=== PATIENT | female | born 1950 | race Caucasian/White ===

== ENCOUNTER → 2019-06-04 09:36 | Outpatient (CLI) | payer MEDICARE, OTHER, SELFPAY | PROVIDERS: PCP Family Medicine; Visit Provider Family Medicine | DX: M81.0 Age-related osteoporosis without current pathological fracture (principal); Z78.0 Asymptomatic menopausal state | CPT/HCPCS: 77080 ==

== ENCOUNTER → 2020-09-14 12:20 | Outpatient (CLI) | payer MEDICARE, OTHER, SELFPAY ==
--- NOTE | 2020-09-14 12:27 | DI.RAD.S_ITS ---
PROCEDURE: XR CHEST 2V INDICATIONS: pain in thoracic spine TECHNIQUE: 2 views of the chest were acquired. COMPARISON: None. FINDINGS: Surgical changes and devices: None. Lungs and pleura: Lungs are clear. No pleural effusions or pneumothorax. Mediastinum: Mediastinal contours are normal. Heart size is normal. Bones and chest wall: Age-indeterminate anterior wedging of lower thoracic or upper lumbar vertebral body. IMPRESSION: No acute cardiopulmonary disease Age-indeterminate lower thoracic or upper lumbar mild compression fracture. Please correlate clinically to determine acuity Dictated by: Robinson Valencia M.D. on 09/14/2020 at 14:08 Approved by: Robinson Valencia M.D. on 09/14/2020 at 14:10
== END ==
PROVIDERS: PCP Family Medicine; Referring Provider Nurse Practitioner Family; Visit Provider Nurse Practitioner Family
DX: M54.6 Pain in thoracic spine (principal)
CPT/HCPCS: 71046

== ENCOUNTER → 2020-10-28 12:16 | Outpatient (CLI) | payer MEDICARE, OTHER, SELFPAY ==
--- NOTE | 2020-10-28 12:29 | DI.RAD.S_ITS ---
PROCEDURE: XR THORACIC SPINE 3V INDICATIONS: muscle spasms TECHNIQUE: 3 views of the thoracic spine were acquired. COMPARISON: [facility], , XR CHEST 2V, 09/14/2020, 12:31. FINDINGS: Bones: Loss of height noted in the anterior column of the T12 vertebral body compatible with compression fracture. T12 compression fracture results in approximately 40% loss of normal anterior vertebral body height. No kyphosis or retropulsed fragments associated the T12 compression fracture. No suspicious bony lesions. Twelve pairs of ribs are noted, and appear intact where visualized. Mild degenerative disc disease noted throughout the thoracic spine. Soft tissues: No paravertebral stripe thickening. Cholecystectomy clips. IMPRESSION: 1. T12 compression fracture which is not significantly changed compared to chest radiographs and September 14, 2020. Dictated by: Telma Marroquin MD, PhD on 10/28/2020 at 16:43 Approved by: Telma Marroquin MD, PhD on 10/28/2020 at 16:48
== END ==
PROVIDERS: PCP Family Medicine; Referring Provider Nurse Practitioner Family; Visit Provider Nurse Practitioner Family
DX: M48.54XA Collapsed vertebra, not elsewhere classified, thoracic region, initial encounter for fracture (principal)
CPT/HCPCS: 72072

== ENCOUNTER → 2020-11-23 11:43 | Outpatient (CLI) | payer MEDICARE, OTHER, SELFPAY ==
--- NOTE | 2020-11-23 | DI.MRI.S_ITS ---
PROCEDURE: MR THORACIC SPINE WO CON INDICATIONS: COMPRESSION FRACTURE TECHNIQUE: Noncontrast sagittal T1 spine echo and T2 fast spin echo, sagittal STIR, axial T1 and T2 fast spin echo through the thoracic spine. COMPARISON: [facility], RF, BARIUM SWALLOW, 08/07/2016, 9:26. [facility], CR, XR CHEST 2V, 09/14/2020, 12:31. [facility], CR, XR THORACIC SPINE 3V, 10/28/2020, 12:30. FINDINGS: Image quality: Excellent. Alignment and Curvature: There is normal bony alignment except for scant kyphosis at T12 associated with the 20% anterior vertebral body height reduction when compared to the level immediately above. This compression fracture initially identified plain film imaging 09/14/20 new, and has not appreciably changed from that time. Bone Marrow: Marrow is of normal overall signal. No acute vertebral body compression fractures. Spinal Cord: Visualized spinal cord is normal in size and signal. Paraspinous Soft Tissues: No paravertebral masses. Miscellaneous: On axial images, central canal and foramina appear widely patent at all scanned levels. IMPRESSION: Chronic wedge compression fracture with 20% anterior height reduction at T12 as a result. No new compression fracture is seen. No suspicion for presence of osteolytic or blastic lesion as the underlying cause. Dictated by: Gio Turner M.D. on 11/23/2020 at 14:42 Approved by: Gio Turner M.D. on 11/23/2020 at 14:47
== END ==
PROVIDERS: PCP Family Medicine; Referring Provider Physical Medicine & Rehabilitation; Visit Provider Physical Medicine & Rehabilitation
DX: S22.080A Wedge compression fracture of T11-T12 vertebra, initial encounter for closed fracture (principal)
CPT/HCPCS: 72146

== ENCOUNTER → 2022-12-01 15:41 | Outpatient (CLI) | payer MEDICARE, OTHER, SELFPAY ==
--- NOTE | 2022-12-01 15:46 | DI.MG.S_ITS ---
BILATERAL DIGITAL SCREENING MAMMOGRAM 3D/2D WITH CAD: 12/01/2022 CLINICAL: Routine screening. Comparison is made to exams dated: 06/29/2017 mammogram - [facility], 11/21/2011 mammogram, 11/27/2008 mammogram, and 04/11/2006 mammogram - [facility]. There are scattered areas of fibroglandular density in both breasts (category b / 25%-50% glandular tissue). Current study was also evaluated with a Computer Aided Detection (CAD) system. No significant masses, calcifications, or other findings are seen in either breast. There has been no significant interval change. IMPRESSION: NEGATIVE There is no mammographic evidence of malignancy. A 1 year screening mammogram is recommended. Based on the Tyrer Cuzick model (a risk assessment model) the patient's lifetime risk is 4.4% and her 10 year risk is 3.6%. According to the ACR, ACS, and NCCN guidelines, an annual breast MRI exam along with mammogram is recommended if the patient's lifetime risk is 20% or greater. This exam was interpreted at Station ID: [id number]. NOTE: For mammograms, a report in lay terms will be sent to the patient. Approximately 15% of breast malignancies will not be visualized mammographically. In the management of a palpable breast mass, a negative mammogram must not discourage biopsy of a clinically suspicious lesion. Electronically Signed By: Le franco/herrera:12/01/2022 17:48:11 letter sent: Normal Exam ACR BI-RADS Category 1: Negative [id number]
== END ==
PROVIDERS: PCP Family Medicine; Referring Provider Family Medicine; Visit Provider Family Medicine
DX: Z12.31 Encounter for screening mammogram for malignant neoplasm of breast (principal)
CPT/HCPCS: 77063; 77067

== ENCOUNTER → 2023-02-23 12:33 | Outpatient (CLI) | payer MEDICARE, OTHER, SELFPAY ==
--- NOTE | 2023-02-23 | DI.RAD.S_ITS ---
PROCEDURE: XR KNEE RT 3V INDICATIONS: KNEE PAIN TECHNIQUE: 3 views of the knee were acquired. COMPARISON: None. FINDINGS: Bones: No fractures or dislocations. No suspicious bony lesions. Mild degenerative changes with osteophytes medially. Soft tissues: No joint effusion. No suspicious soft tissue calcifications. IMPRESSION: Mild degenerative changes of the right knee. Dictated by: Audi Fry M.D. on 02/23/2023 at 13:38 Approved by: Audi Fry M.D. on 02/23/2023 at 13:40
== END ==
PROVIDERS: PCP Family Medicine; Referring Provider Family Medicine; Visit Provider Family Medicine
DX: M25.561 Pain in right knee (principal)
CPT/HCPCS: 73562

== ENCOUNTER → 2024-04-24 09:33 | Outpatient (CLI) | payer MEDICARE, OTHER, SELFPAY ==
--- NOTE | 2024-04-24 | DI.RAD.S_ITS ---
PROCEDURE: XR HIP W PEL IF DONE BILAT 2V COMPARISON: None. INDICATIONS: bilateral hip pain FINDINGS: No acute fracture or dislocation. Mild to moderate on arthritis in the hips bilaterally with joint space narrowing medially and mild bony sclerosis along a acetabular. No lytic or blastic lesions. 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 Dictated by: William Mata M.D. on 04/24/2024 at 13:16 Approved by: William Mata M.D. on 04/24/2024 at 13:18
== END ==
LOC: LAB 09:34 → RAD 09:35
PROVIDERS: PCP Family Medicine; Referring Provider Family Medicine; Visit Provider Family Medicine
DX: M25.551 Pain in right hip (principal); M25.552 Pain in left hip; M16.0 Bilateral primary osteoarthritis of hip
CPT/HCPCS: 73521

== ENCOUNTER → 2024-05-28 | Outpatient (CLI) | payer MEDICARE, OTHER, SELFPAY ==
--- NOTE | 2024-05-28 08:09 | DI.MRI.S_ITS ---
PROCEDURE: MR LUMBAR SPINE WO CON INDICATIONS: LOW BACK PAIN, TECHNIQUE: Noncontrast sagittal T1 spin echo and T2 fast echo, sagittal STIR, and T2 fast spin echo through the lumbar spine. In cases with scoliosis, additional coronal T2 fast spin echo may be performed. COMPARISON: None. FINDINGS: Image quality: Excellent. Alignment and Curvature: No plain films are available for comparison, for numbering purposes. Thus, for the purposes of this examination, 5 lumbar type vertebral bodies will be presumed, as denoted on the montage panel. This should be confirmed and correlated with plain films, prior to any lumbar spinal intervention. There is loss of normal lumbar lordosis. Mild kyphosis at the T11-T12 disc space level Bone Marrow: Marrow is of normal overall signal. No acute vertebral body compression fractures. There is moderate chronic wedging of L3 and mild chronic wedging of T12. Mild reactive signal throughout the endplates of the lumbar and lower thoracic spine. Spinal Cord: Conus medullaris terminates at the L1-L2 disc space level. Visualized cord demonstrates normal signal and size. Paraspinous Soft Tissues: No paravertebral masses. T12-L1: Mild disc desiccation. No significant canal nor foraminal stenosis. L1-L2: Mild disc desiccation. Mild bilateral facet and ligamentum flavum hypertrophy. No significant canal nor foraminal stenosis. L2-L3: Mild facet and ligamentum flavum hypertrophy. Mild epidural lipomatosis. Mild canal stenosis. Mild bilateral foraminal stenosis. L3-L4: Mild disc desiccation and diffuse disc bulge/osteophyte. Mild bilateral facet hypertrophy. Mild canal stenosis. Severe left and moderate right foraminal stenosis. Left L3 nerve root compression. L4-L5: Mild disc desiccation and diffuse disc bulge. Mild bilateral facet and ligamentum flavum hypertrophy. Mild canal stenosis. Moderate subarticular foraminal stenosis bilaterally. L5-S1: Mild bilateral facet hypertrophy. No significant canal stenosis. Mild bilateral foraminal stenosis. IMPRESSION: 1. Multilevel degenerative disc and facet disease, as well as ligamentum flavum hypertrophy and epidural lipomatosis. 2. Mild multilevel canal stenoses. 3. Multilevel foraminal stenoses, worst at L3-L4 where there is associated intraforaminal nerve root compression. Recommend correlation with clinical symptoms to ascertain relevance of this finding. 4. 5 lumbar type vertebral bodies were presumed for the current report. Plain films of the lumbar spine are recommended for confirmation, prior to any lumbar spinal intervention. Dictated by: Yasmine Rodriguez M.D. on 05/28/2024 at 9:53 Approved by: Yasmine Rodriguez M.D. on 05/28/2024 at 10:19
== END ==
LOC: MRI 08:08
PROVIDERS: PCP Family Medicine; Referring Provider Orthopaedic Surgery Adult Reconstructive Orthopaedic Surgery; Visit Provider Orthopaedic Surgery Adult Reconstructive Orthopaedic Surgery
DX: M51.36 Other intervertebral disc degeneration, lumbar region (principal); M47.816 Spondylosis without myelopathy or radiculopathy, lumbar region; M47.817 Spondylosis without myelopathy or radiculopathy, lumbosacral region; M48.061 Spinal stenosis, lumbar region without neurogenic claudication; M48.07 Spinal stenosis, lumbosacral region; M54.50 Low back pain, unspecified
CPT/HCPCS: 72148

== ENCOUNTER → 2024-08-27 12:43 | Outpatient (CLI) | payer MEDICARE, OTHER, SELFPAY ==
--- NOTE | 2024-08-27 12:46 | DI.RAD.S_ITS ---
PROCEDURE: XR WRIST LT MIN 3V INDICATIONS: WRIST PAIN TECHNIQUE: 4 views of the wrist were acquired. COMPARISON: None. FINDINGS: Bones: There is an age-indeterminate slightly displaced and fracture of the scaphoid waist. Mild STT and 1st CMC degenerative changes. Soft tissues: No suspicious calcifications elsewhere. IMPRESSION: Age-indeterminate scaphoid waist fracture. This can be associated with proximal scaphoid osteonecrosis. Mild 1st CMC and STT degenerative changes. Dictated by: Olayinka Rico M.D. on 08/27/2024 at 15:58 Approved by: Olayinka Rico M.D. on 08/27/2024 at 15:59
--- NOTE | 2024-08-27 12:46 | DI.RAD.S_ITS ---
PROCEDURE: XR FOOT RT MIN 3V INDICATIONS: FOOT PAIN TECHNIQUE: 3 views of the foot were acquired. COMPARISON: None. FINDINGS: Bones: Mild 1st MTP arthrosis. Age-indeterminate bone fragment adjacent to the 1st metatarsal head. Plantar and calcaneal enthesopathy. Mild midfoot degenerative changes. Prominent dorsal talar osteophyte. Soft tissues: No suspicious calcifications IMPRESSION: Midfoot and 1st MTP degenerative changes. Prominent dorsal osteophyte. Plantar and calcaneal enthesopathy. Age-indeterminate bone fragment adjacent to the 1st metatarsal head. If there is high concern for further derangement, consider MRI evaluation. Dictated by: Olayinka Rico M.D. on 08/27/2024 at 15:56 Approved by: Olayinka Rico M.D. on 08/27/2024 at 15:57
== END ==
PROVIDERS: PCP Family Medicine; Referring Provider Family Medicine; Visit Provider Family Medicine
DX: S62.025A Nondisplaced fracture of middle third of navicular [scaphoid] bone of left wrist, initial encounter for closed fracture (principal); M77.31 Calcaneal spur, right foot; Z91.81 History of falling
CPT/HCPCS: 73110; 73630

== ENCOUNTER → 2024-09-01 12:32 | Outpatient (CLI) | payer MEDICARE, OTHER, SELFPAY ==
--- NOTE | 2024-09-01 12:33 | DI.CT.S_ITS ---
PROCEDURE: CT UE LT WO CON INDICATIONS: CLOSED DISPLACED FX OF SCAPHOID OF L WRIST TECHNIQUE: Noncontrast 1 mm axial sections acquired through the carpal bones, with coronal and sagittal reformats. COMPARISON: [facility], CR, XR WRIST LT MIN 3V, 08/27/2024, 12:47. FINDINGS: Image quality: Excellent. Bones: There is a chronic-appearing fracture of the proximal pole and scaphoid waist dorsal articular surfaces (5/70; 4/43) without proximal pole sclerosis or extension to the palmar cortex. Intraosseous ganglion cyst formation is likely present within the volar aspect of the scaphoid waist (4/37). No other fracture or dislocation. Joints: There is widening of the scapholunate interval up to 5 mm. 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 Muscles: Overall muscle bulk is preserved. Tendons: The visualized flexor and extensor tendon contours are within normal limits. Vessels: No aneurysmal dilatation of the radial and ulnar arteries. IMPRESSION: Chronic-appearing incomplete fracture of the scaphoid proximal pole/waist without CT evidence of scapholunate injury but without proximal pole sclerosis or complete extension to the palmar cortex. Dictated by: Nihs Mesa M.D. on 09/03/2024 at 14:31 Approved by: Nish Mesa M.D. on 09/03/2024 at 14:39
== END ==
PROVIDERS: PCP Family Medicine; Referring Provider Physician Assistant Surgical; Visit Provider Physician Assistant Surgical
DX: S62.002A Unspecified fracture of navicular [scaphoid] bone of left wrist, initial encounter for closed fracture (principal); X58.XXXA Exposure to other specified factors, initial encounter
CPT/HCPCS: 73200

== ENCOUNTER → 2024-10-08 10:17 | Outpatient (CLI) | payer MEDICARE, OTHER, SELFPAY ==
--- NOTE | 2024-10-08 10:20 | DI.RAD.S_ITS ---
PROCEDURE: FL BARIUM SWALLOW INDICATIONS: dysphagia COMPARISON: [facility], , BARIUM SWALLOW, 08/07/2016, 9:26. FINDINGS: Function: There is weakened esophageal peristalsis, resulting in esophageal stasis. Small volume gastroesophageal reflux. Morphology: Small hiatal hernia. IMPRESSION: Moderate esophageal dysmotility. Small hiatal hernia and mild reflux. Dictated by: Jason Bermeo M.D. on 10/08/2024 at 12:46 Approved by: Jason Bermeo M.D. on 10/08/2024 at 12:47
== END ==
PROVIDERS: PCP Family Medicine; Visit Provider Radiology Diagnostic Radiology
DX: R13.10 Dysphagia, unspecified (principal); K22.4 Dyskinesia of esophagus; K44.9 Diaphragmatic hernia without obstruction or gangrene
CPT/HCPCS: 74220

== ENCOUNTER → 2025-01-23 08:04 | Outpatient (CLI) | payer MEDICARE, OTHER, SELFPAY ==
--- NOTE | 2025-01-23 | DI.MRI.S_ITS ---
PROCEDURE: MR WRIST LT W CON INDICATIONS: SCAPHOLUNATE ADV COLLAPSE LEFT WRIST TECHNIQUE: After the administration of 3-4 mL of dilute intra-articular Gadolinium contrast into the radiocarpal compartment, coronal T1 spin echo with fat saturation and T2 fast spin echo with fat saturation, axial T1 spin echo and T2 fast spin echo with fat saturation, sagittal T1 spin echo with and without fat saturation through the wrist. COMPARISON: Merged With [facility], CT, CT UE LT WO CON, 09/01/2024, 12:36. [facility] [place], CR, XR WRIST 3+ VIEWS LEFT, 01/19/2025, 13:12. Merged With [facility], RF, FL ARTHROGRAM WRIST LT, 01/23/2025, 7:29. FINDINGS: Image quality: Extra-articular injection of administered contrast material dorsal to the wrist. No significant intra-articular contrast material is seen. Some diagnostic information is obtained. Bones and cartilage: Edema and cystic changes again seen within the scaphoid. Previously seen chronic fracture fragment along the proximal pole of the scaphoid is not as well seen with MRI, but does not appear significantly changed. Mild degenerative changes at the 1st carpometacarpal and triscaphe joint. Moderate degenerative changes in the radiocarpal joint with subchondral cystic changes. Mild nonspecific cystic changes in the distal ulna. Scapholunate interval is at the upper limits of normal in width. No signs of osteonecrosis. Carpal ligaments: Mild degeneration of the scapholunate ligament with suspected full-thickness perforation in the membranous portion and likely partial tearing of the volar band near the scaphoid attachment. The dorsal band of the ligament appears to be intact. Lunotriquetral ligament is intact. On sagittal images, the pisohamate ligament appears intact. Triangular fibrocartilage complex: Triangular fibrocartilage complex is intact. Tendons and soft tissues: The carpal tunnel structures appear normal, including the median nerve. The ulnar nerve appears normal within Guyon's canal. Extravasation of contrast material is seen in the dorsal subcutaneous tissues and extending along the 2nd, 3rd, and 4th extensor compartments. Mild extensor carpi ulnaris tendinosis. First extensor compartment tendons are intact. No soft tissue ganglion cysts. IMPRESSION: 1. Extra-articular injection of contrast material, which mildly limits evaluation although some diagnostic information is obtained. Repeat arthrogram could be performed if there is continued clinical concern. 2. Small chronic fracture of the proximal pole the scaphoid does not appear significantly changed when compared to the CT from 09/01/2024 with cystic changes and edema throughout the body of the scaphoid. No signs of osteonecrosis. 3. Mild degeneration of the scapholunate ligament with perforation of the central membranous portion and probable partial tearing of the volar band at the scaphoid attachment. The dorsal band of the ligament appears to be intact. 4. Mild extensor carpi ulnaris tendinosis. 5. Moderate radiocarpal osteoarthrosis and mild degenerative changes at the 1st carpometacarpal and triscaphe joints. Approved by: Reinaldo Meyer M.D. on 01/26/2025 at 12:26
--- NOTE | 2025-01-23 | DI.RAD.S_ITS ---
PROCEDURE: FL ARTHROGRAM WRIST LT INDICATIONS: SCAPHOLUNATE ADV COLLAPSE LEFT WRIST COMPARISON: [facility], , MR WRIST LT W CON, 01/23/2025, 8:53. TECHNIQUE: After informed consent had been obtained, the wrist was examined fluoroscopically, and a site chosen for injection of the radiocarpal compartment from a dorsal approach. Skin was prepped and draped in a sterile fashion and 1% lidocaine infiltrated from the skin down to the articular surface. A hypodermic needle was then introduced into the articular space and a modest amount of contrast medium was instilled confirming intra-articular needle tip placement. This was followed by approximately 4 mL of a dilute gadolinium solution. Needle was removed and dressing was applied. The patient experienced no complications throughout the procedure and left the fluoroscopic suite in no apparent distress. FINDINGS: A single fluoroscopic spot image demonstrates intra-articular location to injected iodinated contrast. IMPRESSION: Successful fluoroscopic-guided administration of dilute Gadolinium solution for wrist MR arthrogram. Dictated by: Kiana Collier M.D. on 01/23/2025 at 11:53 Approved by: Kiana Collier M.D. on 01/23/2025 at 11:54
[2025-01-23] MEDS: SODIUM CHLORIDE 0.9 % 20 ML VIAL IV (09:21)
[2025-01-23] MEDS: LIDOCAINE 1% 20 ML INJ (09:21)
== END ==
PROVIDERS: PCP Family Medicine; Referring Provider Orthopaedic Surgery; Visit Provider Orthopaedic Surgery
DX: M19.132 Post-traumatic osteoarthritis, left wrist (principal); M18.12 Unilateral primary osteoarthritis of first carpometacarpal joint, left hand; S62.03 Fracture of proximal third of navicular [scaphoid] bone of wrist
CPT/HCPCS: 25246; 73115; 73222; A9579; Q9967